=== PATIENT | female | born 1955 | race Caucasian/White ===

== ENCOUNTER 2018-07-11 15:56 | Emergency (ER) | payer MEDICAID ==
[2018-07-11] MEDS ORDERED: Lactated Ringers 1,000 ML IV ONE (16:30)
[2018-07-11] MEDS ORDERED: Ondansetron 4 MG/2 ML SDV IVPUSH ONE (16:30)
--- NOTE | 2018-07-11 16:34 | EDM.PDOC ---
<Francesco Fritz - Last Filed: 07/11/18 17:49> ED HPI GENERAL MEDICAL PROBLEM - General Chief Complaint: 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 Problem Stated Complaint: NAUSEA,WEAK,DIZZY Time Seen by Provider: 07/11/18 16:15 Source of Information: Reports: Patient, Old Records History Limitations: Reports: No Limitations - History of Present Illness INITIAL COMMENTS - FREE TEXT/NARRATIVE: 63 yo female here with nausea, diarrhea (controlled with Imodium) and a cough. Was seen in the clinic recently and had a normal CBC and a negative influenza screen. Has Zofran which she has been taking inconsistently without good relief of her nausea. Is dizzy with standing. No SOB. Is weak. Onset: Gradual Duration: Day(s):, Getting Worse Location: Reports: Generalized Quality: Reports: Other (no pain) Severity: Moderate Improves with: Reports: None Worsens with: Reports: Other (time) Context: Reports: Other (See HPI) Associated Symptoms: Reports: Cough, Fever/Chills, Malaise, Nausea/Vomiting (no vomiting). 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) Generalized Pain Score (Numeric/FACES): 8 - Related Data Allergies Allergy/AdvReac Type Severity Reaction Status Date / Time No Known Allergies Allergy Verified 07/11/18 16:10 Home Meds: Home Meds Albuterol [Proventil Neb Soln] 2.5 mg IH Q4HR PRN 07/11/18 [History] Budesonide/Formoterol [Symbicort 80-4.5 MCG] 2 gm IH BID 07/11/18 [History] Past Medical History HEENT History: Reports: Impaired Vision Respiratory History: Reports: Asthma 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 History: Reports: None 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: Musculoskeletal History: Reports: Fibromyalgia - Infectious Disease History Infectious Disease History: Reports: Chicken Pox, Measles, Mumps - Past Surgical History Head Surgeries/Procedures: Reports: None HEENT Surgical History: Reports: None Respiratory Surgical History: Reports: None GI Surgical History: Reports: Appendectomy Musculoskeletal Surgical History: Reports: None Dermatological Surgical History: Reports: None Social & Family History - Tobacco Use Smoking Status *Q: Current Every Day Smoker Years of Tobacco use: 40 Packs/Tins Daily: 0.5 Used Tobacco, but Quit: No - Caffeine Use Caffeine Use: Reports: Tea - Recreational Drug Use Recreational Drug Use: No ED ROS GENERAL - Review of Systems Review Of Systems: See Below Constitutional: Reports: Fever, Chills, Malaise, Decreased Appetite HEENT: Reports: No Symptoms Respiratory: Reports: Cough. Denies: Shortness of Breath, Sputum, Hemoptysis Cardiovascular: Reports: Lightheadedness Endocrine: Reports: No Symptoms GI/Abdominal: Reports: Anorexia, Diarrhea, Nausea. Denies: Abdominal Pain, Black Stool, Bloody Stool, Constipation, Distension, Flatus, Hematemesis, Hematochezia, Melena, Vomiting : Reports: No Symptoms Musculoskeletal: Reports: No Symptoms Skin: Reports: No Symptoms Neurological: Reports: No Symptoms Psychiatric: Reports: No Symptoms ED EXAM, GI/ABD - Physical Exam Exam: See Below Exam Limited By: No Limitations General Appearance: Alert, WD/WN, No Apparent Distress, Other (Seems to be having a hard time with clear thought. Had to re-ask or re-phrase questions several times for her to answer the question that was asked. ) Eyes: Bilateral: Normal Appearance Ears: Normal External Exam, Normal Canal, Hearing Grossly Normal, Normal TMs Nose: Normal Inspection, No Blood Throat/Mouth: Normal Inspection, Normal Lips, Normal Oropharynx, Normal Voice, No Airway Compromise Head: Atraumatic, Normocephalic Neck: Normal Inspection, Supple, Non-Tender Respiratory/Chest: No Respiratory Distress, Lungs Clear, Normal Breath Sounds, No Accessory Muscle Use Cardiovascular: Regular Rate, Rhythm, No Edema GI/Abdominal Exam: Normal Bowel Sounds, Soft, Non-Tender, No Distention Back Exam: Normal Inspection. No: CVA Tenderness (R), CVA Tenderness (L) Extremities: Normal Inspection, Normal Range of Motion, Non-Tender, No Pedal Edema Neurological: Alert, Oriented, CN II-XII Intact, Normal Cognition, No Motor/ Sensory Deficits Psychiatric: Normal Affect, Normal Mood Skin Exam: Warm, Dry, Intact, Normal Color, No Rash Course - Vital Signs Last Recorded V/S: Last Vital Signs Temp 37.1 C 07/11/18 16:14 Pulse 67 07/11/18 16:14 Resp 16 07/11/18 16:14 BP 103/63 07/11/18 16:14 Pulse Ox 97 07/11/18 16:14 - Orders/Labs/Meds Labs: Laboratory Tests 07/11/18 07/11/18 Range/Units 16:40 16:40 WBC 5.7 (4.5-11.0) K/uL RBC 4.71 (3.30-5.50) M/uL Hgb 15.4 H (12.0-15.0) g/dL Hct 47.3 (36.0-48.0) % MCV 100 H (80-98) fL MCH 33 H (27-31) pg MCHC 33 (32-36) % Plt Count 139 L (150-400) K/uL Sodium 123 L (140-148) mmol/L Potassium 4.4 (3.6-5.2) mmol/L Chloride 86 L (100-108) mmol/L Carbon Dioxide 30 (21-32) mmol/L Anion Gap 11.4 (5.0-14.0) mmol/L BUN 14 (7-18) mg/dL Creatinine 0.6 (0.6-1.0) mg/dL Est Cr Clr Drug Dosing 66.96 mL/min Estimated GFR (MDRD) > 60 (>60) Glucose 115 H (74-106) mg/dL Calcium 7.8 L (8.5-10.1) mg/dL Meds: Medications Discontinued Medications Generic Name Dose Route Start Last Admin Trade Name Freq PRN Reason Stop Dose Admin Lactated Ringer's 1,000 mls @ 1,000 mls/hr 07/11/18 16:30 07/11/18 16:41 Ringers, Lactated IV 07/11/18 17:29 1,000 mls/hr BOLUS ONE Administration Sodium Chloride 1,000 mls @ 1,000 mls/hr 07/11/18 17:40 07/11/18 17:42 Normal Saline IV 07/11/18 18:39 1,000 mls/hr .BOLUS ONE Administration Ondansetron HCl 4 mg 07/11/18 16:30 07/11/18 16:44 Zofran IVPUSH 07/11/18 16:31 4 mg ONETIME ONE Administration Departure - Departure Disposition: Home, Self-Care 01 Condition: Fair Clinical Impression: Hyponatremia, Tobacco abuse, Viral illness - Discharge Information Instructions: Hyponatremia, [id number] Referrals: PCP,None [Primary Care Provider] - Forms: ED Department Discharge Additional Instructions: Please push oral intake with some other liquids other than water and solids Return to the ER for worsening symptoms, follow up with your primary doctor as needed <Danny Pringle - Last Filed: 07/11/18 18:46> Course - Re-Assessments/Exams Free Text/Narrative Re-Assessment/Exam: Received patient in sign out from Dr Fritz pending trial of ambulation and re- assessment She is ambulating in the ED with steady gait. Minimal dizziness. Tolerating PO Safe for discharge Has anti-tussive and anti-emetic prescribed for home. 07/11/18 18:45 Departure - Departure Time of Disposition: 18:42 - Discharge Information *PRESCRIPTION DRUG MONITORING PROGRAM REVIEWED*: No *COPY OF PRESCRIPTION DRUG MONITORING REPORT IN PATIENT [place]: No
[2018-07-11] MEDS ORDERED: Sodium Chloride 0.9% 1,000 ML IV ONE (17:40)
== END 2018-07-11 18:50 | disposition home or self-care (01) ==
LOC: JP.ED 15:56
DX: B34.9 Viral infection, unspecified (principal); F17.210 Nicotine dependence, cigarettes, uncomplicated; E87.1 Hypo-osmolality and hyponatremia; Z79.899 Other long term (current) drug therapy
CPT/HCPCS: 36415; 80048; 85027; 96361; 96374; 99283; J2405; J7030; J7120

== ENCOUNTER 2019-06-17 18:47 | Inpatient (IN) | payer MEDICAID ==
[2019-06-17] MEDS ORDERED: Albuterol/Ipratropium 3.0-0.5 MG/3 ML Neb Soln NEB ONE (20:16)
[2019-06-17] MEDS ORDERED: methylPREDNISolone Sodium Succinate 125 MG/2 ML SDV IVPUSH ONE (20:17)
--- NOTE | 2019-06-17 20:21 | EDM.PDOC ---
ED HPI GENERAL MEDICAL PROBLEM - General Chief Complaint: Respiratory Problem Stated Complaint: SOB Time Seen by Provider: 06/17/19 20:00 Source of Information: Reports: Patient, Family History Limitations: Reports: No Limitations - History of Present Illness INITIAL COMMENTS - FREE TEXT/NARRATIVE: 64-year-old female with COPD, has had a 5-day illness with increased cough, low intermittent fevers and increased shortness of breath. She went into the clinic today and a work-up revealed hypoxemia. They were going to try to discharge her and treat her outpatient and arrange home O2, however this was unobtainable at this time. She continued to become hypoxic in the low to mid 80s without oxygen supplementation, so was sent over to the emergency room to be "admitted to the hospital". A chest x-ray was done at the clinic which shows hyperinflation but no infiltrate. She is afebrile at this time. She does continue to smoke. Her cough is nonproductive. Onset: Gradual Duration: Day(s): Associated Symptoms: Reports: Chest Pain (With coughing), Cough, Fever/Chills, Malaise, Shortness of Breath - Related Data Allergies Allergy/AdvReac Type Severity Reaction Status Date / Time No Known Allergies Allergy Verified 07/11/18 16:10 Home Meds: Home Meds Budesonide/Formoterol [Symbicort 80-4.5 MCG] 2 gm IH BID 07/11/18 [History] Albuterol [Ventolin 2 MG/5 ML] 3 ml INH Q3H PRN 06/17/19 [History] Albuterol [Ventolin HFA] 1 - 2 puff INH ASDIRECTED 06/17/19 [History] Calcium Carbonate/Vitamin D3 [Calcium 600-Vit D3 2,500 Sftgl] 2.5 tab PO DAILY 06/17/19 [History] Levofloxacin 750 mg PO DAILY 06/17/19 [History] Umeclidinium Brm/Vilanterol Tr [Anoro Ellipta 62.5-25 MCG] 1 puff INH DAILY [History] predniSONE [Prednisone] 1 - 6 tab PO ASDIRECTED 06/17/19 [History] Past Medical History HEENT History: Reports: Impaired Vision Respiratory History: Reports: Asthma, COPD 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 History: Reports: 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: Musculoskeletal History: Reports: Fibromyalgia - Infectious Disease History Infectious Disease History: Reports: Chicken Pox, Measles, Mumps - Past Surgical History Head Surgeries/Procedures: Reports: None HEENT Surgical History: Reports: None Respiratory Surgical History: Reports: None GI Surgical History: Reports: Appendectomy Musculoskeletal Surgical History: Reports: None Dermatological Surgical History: Reports: None Social & Family History - Tobacco Use Smoking Status *Q: Heavy Tobacco Smoker Years of Tobacco use: 45 Packs/Tins Daily: 0.5 - Caffeine Use Caffeine Use: Reports: None - Recreational Drug Use Recreational Drug Use: No ED ROS GENERAL - Review of Systems Review Of Systems: See Below Constitutional: Reports: Fever, Chills, Malaise HEENT: Denies: Throat Pain Respiratory: Reports: Shortness of Breath, Cough. Denies: Wheezing, Sputum Cardiovascular: Reports: Chest Pain (Chest is getting sore from coughing) GI/Abdominal: Reports: Abdominal Pain (Upper abdominal muscles are sore from coughing) Skin: Reports: No Symptoms Neurological: Denies: Dizziness, Headache Psychiatric: Reports: No Symptoms ED EXAM, GENERAL - Physical Exam Exam: See Below Exam Limited By: No Limitations General Appearance: Alert, No Apparent Distress (Patient looks dyspneic with some mild accessory muscle usage but not distressed with the supplemental O2) Head: Atraumatic Respiratory/Chest: No Respiratory Distress, Lungs Clear, Decreased Breath Sounds (Diffuse decreased breath sounds) Cardiovascular: Regular Rate, Rhythm, Tachycardia GI/Abdominal: Normal Bowel Sounds, Tender (Soreness to palpation of the upper abdominal muscles) Extremities: No Pedal Edema Neurological: Alert, Oriented Psychiatric: Normal Affect, Normal Mood Skin Exam: Warm, Dry Course - Vital Signs Last Recorded V/S: Last Vital Signs Temp 98.0 F 06/17/19 22:23 Pulse 111 H 06/17/19 22:23 Resp 23 H 06/17/19 22:23 BP 105/79 06/17/19 22:23 Pulse Ox 92 L 06/17/19 22:23 - Orders/Labs/Meds Orders: Medication Orders Acetaminophen (Tylenol) 650 mg PO Q4H PRN PRN Reason: Pain (Mild 1-3)/fever Albuterol/Ipratropium (Duoneb 3.0-0.5 Mg/3 Ml) 3 ml NEB Q4H [facility] Last Admin: 06/17/19 22:07 Dose: 3 ml Diphenhydramine HCl (Benadryl) 25 mg PO ONETIME ONE Stop: 06/17/19 23:44 Heparin Sodium (Porcine) (Heparin Sodium) 5,000 units SUBCUT Q8H [facility] Last Admin: 06/17/19 22:21 Dose: 5,000 units Levofloxacin/Dextrose 750 mg/ (Premix) 150 mls @ 100 mls/hr IV Q24H [facility] Last Admin: 06/17/19 22:42 Dose: 100 mls/hr Ondansetron HCl (Zofran Odt) 4 mg PO Q6H PRN PRN Reason: Nausea able to take PO Senna/Docusate Sodium (Senna Plus) 1 tab PO BID PRN PRN Reason: Constipation Labs: Laboratory Tests 06/17/19 06/17/19 Range/Units 20:31 20:31 WBC 5.2 (4.5-11.0) K/uL RBC 4.50 (3.30-5.50) M/uL Hgb 14.1 (12.0-15.0) g/dL Hct 44.9 (36.0-48.0) % MCV 100 H (80-98) fL MCH 31 (27-31) pg MCHC 31 L (32-36) % Plt Count 174 (150-400) K/uL Neut % (Auto) 59 (36-66) % Lymph % (Auto) 25 (24-44) % [place] % (Auto) 15 H (2-6) % Eos % (Auto) 0 L (2-4) % Baso % (Auto) 2 H (0-1) % Sodium 137 L (140-148) mmol/L Potassium 4.6 (3.6-5.2) mmol/L Chloride 98 L (100-108) mmol/L Carbon Dioxide 29 (21-32) mmol/L Anion Gap 14.6 H (5.0-14.0) mmol/L BUN 8 (7-18) mg/dL Creatinine 0.5 L (0.6-1.0) mg/dL Est Cr Clr Drug Dosing 83.84 mL/min Estimated GFR (MDRD) > 60 (>60) Glucose 97 (74-106) mg/dL Calcium 8.3 L (8.5-10.1) mg/dL Total Bilirubin 0.2 (0.2-1.0) mg/dL AST 40 H (15-37) U/L ALT 49 (12-78) U/L Alkaline Phosphatase 55 (46-116) U/L Total Protein 6.7 (6.4-8.2) g/dL Albumin 3.1 L (3.4-5.0) g/dL Globulin 3.6 H (2.3-3.5) g/dL Albumin/Globulin Ratio 0.9 L (1.2-2.2) Meds: Medications Generic Name Dose Route Start Last Admin Trade Name Yannick PRN Reason Stop Dose Admin Acetaminophen 650 mg 06/17/19 21:28 Tylenol PO Q4H PRN Pain (Mild 1-3)/fever Albuterol/Ipratropium 3 ml 06/17/19 21:45 06/17/19 22:07 Duoneb 3.0-0.5 Mg/3 Ml NEB 3 ml Q4H RONA Administration Diphenhydramine HCl 25 mg 06/17/19 23:43 Benadryl PO 06/17/19 23:44 ONETIME ONE Heparin Sodium (Porcine) 5,000 units 06/17/19 21:30 06/17/19 22:21 Heparin Sodium SUBCUT 5,000 units Q8H RONA Administration Levofloxacin/Dextrose 750 mg/ 150 mls @ 100 mls/hr 06/17/19 22:00 06/17/19 22 :42 Premix IV 100 mls/hr Q24H RONA Administration Ondansetron HCl 4 mg 06/17/19 21:28 Zofran Odt PO Q6H PRN Nausea able to take PO Senna/Docusate Sodium 1 tab 06/17/19 21:28 Senna Plus PO BID PRN Constipation Discontinued Medications Generic Name Dose Route Start Last Admin Trade Name Yannick PRN Reason Stop Dose Admin Albuterol/Ipratropium 3 ml 06/17/19 20:16 06/17/19 20:26 Duoneb 3.0-0.5 Mg/3 Ml NEB 06/17/19 20:17 3 ml ONETIME ONE Administration Methylprednisolone Sodium Succinate 125 mg 06/17/19 20:17 06/17/19 20:26 Solu-Medrol IVPUSH 06/17/19 20:18 125 mg ONETIME ONE Administration - Re-Assessments/Exams Free Text/Narrative Re-Assessment/Exam: 06/17/19 20:59 An IV was started for access, patient was given 125 mg of IV Solu-Medrol and also a DuoNeb. The DuoNeb did provide some subjective improvement but objectively was similar. CBC and CMP were obtained and Dr. Triana was contacted for admission for COPD exacerbation patient. Influenza A and B were also obtained. 06/17/19 21:02 CBC is normal, influenza a and B antigens were negative. Departure - Departure Time of Disposition: 21:54 Disposition: Admitted As Inpatient 66 Clinical Impression: Acute exacerbation of chronic obstructive pulmonary disease (COPD) - Discharge Information Sepsis Event Note - Evaluation Sepsis Screening Result: No Definite Risk - Focused Exam Vital Signs: Vital Signs Temp Pulse Resp BP Pulse Ox 06/17/19 19:51 97.8 F 114 H 16 124/75 91 L 06/17/19 19:34 97.8 F 114 H 16 124/75 91 L Date Exam was Performed: 06/17/19 Time Exam was Performed: 23:46
--- NOTE | 2019-06-17 21:04 | PCM.HP.2 ---
H&P History of Present Illness - General Date of Service: 06/17/19 Source of Information: Patient History Limitations: Reports: No Limitations - History of Present Illness Initial Comments - Free Text/Narative: 64-year-old female with medical history of centrilobular emphysema, chronic fatigue syndrome, nicotine dependence, fibromyalgia, questionable asthma, migraine syndrome, lower extremity varicose veins came to the ED with a concerns of cough associated with the sputum production with low oxygen saturation. Patient initially went to urgent care at that time patient saturations was around 80. At that complaint patient transferred to ER. Patient denies any chest pain, exertional chest pain, headaches, dizziness, lightheadedness, disturbance in bowel and bladder habits. Patient complaining of intermittent fever associated with cough since last 1 week which is gradually progressing. Patient did not receive flu vaccination this season. Denies any lower extremity swelling, orthopnea, PND and palpitations. Patient smokes half a pack a day wants to quit smoking. Patient is compliant with Symbicort and Incruse. Patient complaining of shortness of breath denies any loss of consciousness. In the ED patient x-ray did not show any concerns of pneumonia, WBCs within normal limit, CRP is elevated and saturations are 91% with 2 L of oxygen. Patient received 1 dose of 125 mg prednisolone IV. Patient is a full code. Other review of systems are not significant. - Related Data Allergies/Adverse Reactions: Allergies Allergy/AdvReac Type Severity Reaction Status Date / Time No Known Allergies Allergy Verified 07/11/18 16:10 Home Medications: Home Meds Albuterol [Ventolin 2 MG/5 ML] 3 ml INH Q3H PRN 06/17/19 [History] Albuterol [Ventolin HFA] 1 - 2 puff INH ASDIRECTED 06/17/19 [History] Calcium Carbonate/Vitamin D3 [Calcium 600-Vit D3 2,500 Sftgl] 2.5 tab PO DAILY 06/17/19 [History] Levofloxacin 750 mg PO DAILY 06/17/19 [History] predniSONE [Prednisone] 1 - 6 tab PO ASDIRECTED 06/17/19 [History] Budesonide/Formoterol Fumarate [Symbicort 160-4.5 Mcg Inhaler] 2 puff INH BID [History] Non-Formulary Medication [NF Drug] 1 puff INH DAILY 06/18/19 [History] Past Medical History HEENT History: Reports: Impaired Vision Respiratory History: Reports: Asthma, COPD 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 History: Reports: 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: Musculoskeletal History: Reports: Fibromyalgia - Infectious Disease History Infectious Disease History: Reports: Chicken Pox, Measles, Mumps - Past Surgical History Head Surgeries/Procedures: Reports: None HEENT Surgical History: Reports: None Respiratory Surgical History: Reports: None GI Surgical History: Reports: Appendectomy Musculoskeletal Surgical History: Reports: None Dermatological Surgical History: Reports: None Social & Family History - Family History Family Medical History: Noncontributory - Tobacco Use Smoking Status *Q: Heavy Tobacco Smoker Years of Tobacco use: 45 Packs/Tins Daily: 0.5 - Caffeine Use Caffeine Use: Reports: None - Recreational Drug Use Recreational Drug Use: No H&P Review of Systems - Review of Systems: Review Of Systems: See Below General: Reports: Fever, Chills, Malaise, Weakness, Fatigue, Decreased Appetite. Denies: Night Sweats, Diaphoresis, Weight Loss, Weight Gain Pulmonary: Reports: Shortness of Breath, Wheezing, Cough, Sputum. Denies: Pleuritic Chest Pain, Hemoptysis Cardiovascular: Reports: Dyspnea on Exertion. Denies: Chest Pain, Palpitations , Orthopnea, PND, Edema, Lightheadedness, Syncope, Claudication, Blood Pressure Problem 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: Denies: Abdominal Pain, Constipation, Diarrhea, Nausea, Vomiting Genitourinary: Denies: Dysuria, Frequency Musculoskeletal: Denies: Neck Pain, Shoulder Pain Psychiatric: Denies: Confusion, Depression Neurological: Denies: Confusion, Dizziness Hematologic/Lymphatic: Denies: Anemia, Easy Bleeding Immunologic: Denies: Anaphylaxis Exam - Exam Exam: See Below - Vital Signs Vital Signs: Last Vital Signs Temp 36.6 C 06/17/19 19:51 Pulse 114 H 06/17/19 19:51 Resp 16 06/17/19 19:51 BP 124/75 06/17/19 19:51 Pulse Ox 91 L 06/17/19 19:51 Weight: 46.72 kg - Exam Quality Assessment: Supplemental Oxygen General: Alert, Oriented Neck: Supple, Trachea Midline Lungs: Decreased Breath Sounds Cardiovascular: Regular Rate, Regular Rhythm GI/Abdominal Exam: Normal Bowel Sounds, Soft, Non-Tender Back Exam: Normal Inspection, Full Range of Motion Extremities: Normal Inspection, Normal Range of Motion, Non-Tender, No Pedal Edema, Normal Capillary Refill Skin: Warm, Dry, Intact Neuro Extensive - Mental Status: Alert, Oriented x3, Normal Mood/Affect - Patient Data Lab Results Last 24 hrs: Laboratory Results - last 24 hr 06/17/19 06/17/19 Range/Units 20:31 20:31 WBC 5.2 (4.5-11.0) K/uL RBC 4.50 (3.30-5.50) M/uL Hgb 14.1 (12.0-15.0) g/dL Hct 44.9 (36.0-48.0) % MCV 100 H (80-98) fL MCH 31 (27-31) pg MCHC 31 L (32-36) % Plt Count 174 (150-400) K/uL Neut % (Auto) 59 (36-66) % Lymph % (Auto) 25 (24-44) % [place] % (Auto) 15 H (2-6) % Eos % (Auto) 0 L (2-4) % Baso % (Auto) 2 H (0-1) % Sodium 137 L (140-148) mmol/L Potassium 4.6 (3.6-5.2) mmol/L Chloride 98 L (100-108) mmol/L Carbon Dioxide 29 (21-32) mmol/L Anion Gap 14.6 H (5.0-14.0) mmol/L BUN 8 (7-18) mg/dL Creatinine 0.5 L (0.6-1.0) mg/dL Est Cr Clr Drug Dosing 83.84 mL/min Estimated GFR (MDRD) > 60 (>60) Glucose 97 (74-106) mg/dL Calcium 8.3 L (8.5-10.1) mg/dL Total Bilirubin 0.2 (0.2-1.0) mg/dL AST 40 H (15-37) U/L ALT 49 (12-78) U/L Alkaline Phosphatase 55 (46-116) U/L Total Protein 6.7 (6.4-8.2) g/dL Albumin 3.1 L (3.4-5.0) g/dL Globulin 3.6 H (2.3-3.5) g/dL Albumin/Globulin Ratio 0.9 L (1.2-2.2) Result Diagrams: 06/18/19 04:45 06/18/19 04:45 Hector Results Last 24 hrs: Microbiology 06/17/19 20:35 Influenza Type A Antigen Screen - Final Nasal, Unspecified NEGATIVE INFLUENZA A VIRUS AG REFERENCE RANGE: NEGATIVE Influenza Type B Antigen Screen - Final NEGATIVE INFLUENZA B VIRUS AG REFERENCE RANGE: NEGATIVE Sepsis Event Note - Evaluation Sepsis Screening Result: No Definite Risk - Focused Exam Vital Signs: Vital Signs Temp Pulse Resp BP Pulse Ox 06/17/19 19:51 36.6 C 114 H 16 124/75 91 L 06/17/19 19:34 36.6 C 114 H 16 124/75 91 L Date Exam was Performed: 06/20/19 Time Exam was Performed: 06:02 - Problem List (1) Fibromyalgia SNOMED Code(s): 177764820 ICD Code: M79.7 - FIBROMYALGIA Status: Acute Current Visit: Yes (2) Migraine SNOMED Code(s): 19045590 ICD Code: G43.909 - MIGRAINE, UNSP, NOT INTRACTABLE, WITHOUT STATUS MIGRAINOSUS Status: Acute Current Visit: Yes (3) Acute exacerbation of chronic obstructive pulmonary disease (COPD) SNOMED Code(s): 114770172 ICD Code: J44.1 - CHRONIC OBSTRUCTIVE PULMONARY DISEASE W (ACUTE) EXACERBATION Status: Acute Current Visit: Yes (4) Centrilobular emphysema SNOMED Code(s): 91369854 ICD Code: J43.2 - CENTRILOBULAR EMPHYSEMA Status: Chronic Current Visit: No (5) Chronic fatigue syndrome SNOMED Code(s): 66521061 ICD Code: R53.82 - CHRONIC FATIGUE, UNSPECIFIED Status: Chronic Current Visit: No (6) Moderate persistent asthma SNOMED Code(s): 803360114 ICD Code: J45.40 - MODERATE PERSISTENT ASTHMA, UNCOMPLICATED Status: Chronic Current Visit: No (7) Tobacco abuse SNOMED Code(s): 334656516 ICD Code: Z72.0 - TOBACCO USE Status: Chronic Current Visit: No Problem List Initiated/Reviewed/Updated: Yes Orders Last 24hrs: Active Orders 24 hr Category Date Time Status RT Aerosol Therapy [RC] ASDIRECTED Care 06/17/19 20:16 Active Assessment/Plan Comment:: 64-year-old female with medical history of COPD, emphysema, questionable asthma , chronic fatigue syndrome, migraine headaches, fibromyalgia, nicotine dependence came to the ED with a concerns of hypoxia, shortness of breath and admitted into the hospital with COPD exasperation Patient saturations are around 80 with room air, 91% with 2 L of oxygen We will continue oxygen supplementation with goal of saturations 92 CRP is elevated, x-ray did not show any pneumonia We will add levofloxacin for empiric antibiotics We will repeat CBC CMP tomorrow DuoNeb scheduled dose 4 times daily We will continue 125 mg IV prednisone once daily Continue Symbicort, Incruse Will consult pulmonology rehab for smoking cessation counseling DVT prophylaxis heparin subcu 8 hourly CODE STATUS full code IV fluids not indicated Wagner catheter not indicated Diet regular diet Inpatient status
[2019-06-17] MEDS ORDERED: Acetaminophen 325 MG Tab PO PRN (21:28)
[2019-06-17] MEDS ORDERED: Ondansetron 4 MG Tab.DIS PO PRN (21:28)
[2019-06-17] MEDS ORDERED: Levofloxacin/Dextrose 5%-Water 750 MG in Premix Bag 1 BAG IV SCH (22:00)
[2019-06-17] MEDS: Albuterol/Ipratropium 3.0-0.5 MG/3 ML Neb Soln NEB SCH (22:07)
[2019-06-17] MEDS: Heparin Sodium 5,000 Units/ML Vial SUBCUT SCH (22:21)
[2019-06-17] MEDS ORDERED: diphenhydrAMINE 25 MG Cap PO ONE (23:43)
[2019-06-18] MEDS: Albuterol/Ipratropium 3.0-0.5 MG/3 ML Neb Soln NEB SCH ×5 (01:00→20:20)
[2019-06-18] MEDS ORDERED: Levofloxacin/Dextrose 5%-Water 750 MG in Premix Bag 1 BAG IV SCH (02:00)
[2019-06-18] MEDS: Heparin Sodium 5,000 Units/ML Vial SUBCUT SCH (06:13)
[2019-06-18] MEDS ORDERED: FORMOTEROL IH SCH (09:00)
[2019-06-18] MEDS ORDERED: Non-Formulary Medication 1 Each (Umeclidinium Brm/Vilanterol Tr [Anoro Ellipta 62.5-25 Mcg INH SCH (09:00)
[2019-06-18] MEDS ORDERED: BUDESONIDE IH SCH (09:00)
[2019-06-18] MEDS ORDERED: Benzonatate 100 MG Cap PO PRN (09:16)
--- NOTE | 2019-06-18 09:19 | PCM.PN ---
- General Info Date of Service: 06/18/19 Subjective Update: There were no acute events overnight following admission. She is coughing a fair amount but not producing sputum. Still short of breath with any activity. She has not had any fevers. No complaints of chest pain. Appetite has been decent. She has been bothered by a tremor in her foot which she calls a restless leg. Functional Status: Reports: Pain Controlled, Tolerating Diet - Review of Systems General: Denies: Fever Pulmonary: Reports: Shortness of Breath, Cough - Patient Data Vitals - Most Recent: Last Vital Signs Temp 36.6 C 06/18/19 08:00 Pulse 102 H 06/18/19 08:00 Resp 18 06/18/19 08:00 BP 110/65 06/18/19 08:00 Pulse Ox 94 L 06/18/19 08:00 Weight - Most Recent: 46.72 kg I&O - Last 24 Hours: Intake & Output 06/17/19 06/18/19 06/18/19 22:59 06:59 14:59 Intake Total 150 Balance 150 Lab Results Last 24 Hours: Laboratory Results - last 24 hr 06/17/19 06/17/19 06/17/19 Range/Units 20:31 20:31 21:38 WBC 5.2 (4.5-11.0) K/uL RBC 4.50 (3.30-5.50) M/uL Hgb 14.1 (12.0-15.0) g/dL Hct 44.9 (36.0-48.0) % MCV 100 H (80-98) fL MCH 31 (27-31) pg MCHC 31 L (32-36) % Plt Count 174 (150-400) K/uL Neut % (Auto) 59 (36-66) % Lymph % (Auto) 25 (24-44) % Posey % (Auto) 15 H (2-6) % Eos % (Auto) 0 L (2-4) % Baso % (Auto) 2 H (0-1) % Sodium 137 L (140-148) mmol/L Potassium 4.6 (3.6-5.2) mmol/L Chloride 98 L (100-108) mmol/L Carbon Dioxide 29 (21-32) mmol/L Anion Gap 14.6 H (5.0-14.0) mmol/L BUN 8 (7-18) mg/dL Creatinine 0.5 L (0.6-1.0) mg/dL Est Cr Clr Drug Dosing 83.84 mL/min Estimated GFR (MDRD) > 60 (>60) Glucose 97 (74-106) mg/dL Calcium 8.3 L (8.5-10.1) mg/dL Total Bilirubin 0.2 (0.2-1.0) mg/dL AST 40 H (15-37) U/L ALT 49 (12-78) U/L Alkaline Phosphatase 55 (46-116) U/L C-Reactive Protein 11.33 H (0.0-0.3) mg/dL Total Protein 6.7 (6.4-8.2) g/dL Albumin 3.1 L (3.4-5.0) g/dL Globulin 3.6 H (2.3-3.5) g/dL Albumin/Globulin Ratio 0.9 L (1.2-2.2) 06/18/19 06/18/19 Range/Units 04:45 04:45 WBC 2.6 L (4.5-11.0) K/uL RBC 4.31 (3.30-5.50) M/uL Hgb 13.5 (12.0-15.0) g/dL Hct 43.2 (36.0-48.0) % MCV 100 H (80-98) fL MCH 31 (27-31) pg MCHC 31 L (32-36) % Plt Count 171 (150-400) K/uL Neut % (Auto) 77 H (36-66) % Lymph % (Auto) 18 L (24-44) % Posey % (Auto) 2 (2-6) % Eos % (Auto) 0 L (2-4) % Baso % (Auto) 2 H (0-1) % Sodium 136 L (140-148) mmol/L Potassium 4.5 (3.6-5.2) mmol/L Chloride 98 L (100-108) mmol/L Carbon Dioxide 32 (21-32) mmol/L Anion Gap 10.5 (5.0-14.0) mmol/L BUN 9 (7-18) mg/dL Creatinine 0.7 (0.6-1.0) mg/dL Est Cr Clr Drug Dosing 59.88 mL/min Estimated GFR (MDRD) > 60 (>60) Glucose 139 H (74-106) mg/dL Calcium 8.5 (8.5-10.1) mg/dL Total Bilirubin (0.2-1.0) mg/dL AST (15-37) U/L ALT (12-78) U/L Alkaline Phosphatase (46-116) U/L C-Reactive Protein (0.0-0.3) mg/dL Total Protein (6.4-8.2) g/dL Albumin (3.4-5.0) g/dL Globulin (2.3-3.5) g/dL Albumin/Globulin Ratio (1.2-2.2) Hector Results Last 24 Hours: Microbiology 06/17/19 20:35 Influenza Type A Antigen Screen - Final Nasal, Unspecified NEGATIVE INFLUENZA A VIRUS AG REFERENCE RANGE: NEGATIVE Influenza Type B Antigen Screen - Final NEGATIVE INFLUENZA B VIRUS AG REFERENCE RANGE: NEGATIVE Med Orders - Current: Current Medications Acetaminophen (Tylenol) 650 mg PO Q4H PRN PRN Reason: Pain (Mild 1-3)/fever Calcium Carbonate (Caltrate 600+D 1500 Mg-400 Units) 2 tab PO DAILY [facility] Non-Formulary Medication (Budesonide/Formoterol [Symbicort 80-4.5 Mcg]) 2 gm IH BID [facility] Non-Formulary Medication (Umeclidinium Brm/Vilanterol Tr [Anoro Ellipta 62.5-25 Mcg]) 1 puff INH DAILY [facility] Ondansetron HCl (Zofran Odt) 4 mg PO Q6H PRN PRN Reason: Nausea able to take PO Senna/Docusate Sodium (Senna Plus) 1 tab PO BID PRN PRN Reason: Constipation Discontinued Medications Albuterol/Ipratropium (Duoneb 3.0-0.5 Mg/3 Ml) 3 ml NEB ONETIME ONE Stop: 06/17/19 20:17 Last Admin: 06/17/19 20:26 Dose: 3 ml Albuterol/Ipratropium (Duoneb 3.0-0.5 Mg/3 Ml) 3 ml NEB Q4H [facility] Last Admin: 06/18/19 06:11 Dose: 3 ml Albuterol/Ipratropium (Duoneb 3.0-0.5 Mg/3 Ml) 3 ml NEB Q4H [facility] Diphenhydramine HCl (Benadryl) 25 mg PO ONETIME ONE Stop: 06/17/19 23:44 Last Admin: 06/18/19 00:09 Dose: 25 mg Heparin Sodium (Porcine) (Heparin Sodium) 5,000 units SUBCUT Q8H [facility] Last Admin: 06/18/19 06:13 Dose: 5,000 units Levofloxacin/Dextrose 750 mg/ (Premix) 150 mls @ 100 mls/hr IV Q24H [facility] Last Admin: 06/17/19 22:42 Dose: 100 mls/hr Levofloxacin/Dextrose 250 mg/ (Premix) 50 mls @ 50 mls/hr IV Q24H [facility] Methylprednisolone Sodium Succinate (Solu-Medrol) 125 mg IVPUSH ONETIME ONE Stop: 06/17/19 20:18 Last Admin: 06/17/19 20:26 Dose: 125 mg - Exam Quality Assessment: Supplemental Oxygen General: Alert, Oriented, Cooperative, No Acute Distress Lungs: Normal Respiratory Effort, Decreased Breath Sounds (poor exp air movement throughout ). No: Crackles, Wheezing Cardiovascular: Regular Rate, Regular Rhythm GI/Abdominal Exam: Soft, No Distention Extremities: No Pedal Edema Psy/Mental Status: Alert, Normal Affect Sepsis Event Note - Evaluation Sepsis Screening Result: Sepsis Risk - Focused Exam Vital Signs: Vital Signs Temp Pulse Resp BP Pulse Ox 06/18/19 08:00 36.6 C 102 H 18 110/65 94 L 06/18/19 06:05 92 L 06/18/19 06:00 36.2 C 96 16 102/55 L 91 L 06/18/19 01:02 36.8 C 102 H 18 115/78 93 L 06/17/19 22:23 36.7 C 111 H 23 H 105/79 92 L 06/17/19 22:20 86 L Date Exam was Performed: 06/18/19 Time Exam was Performed: 12:34 - Problem List Review Problem List Initiated/Reviewed/Updated: Yes - My Orders Last 24 Hours: My Active Orders 06/18/19 09:16 Benzonatate [Tessalon Perles] 100 mg PO TID PRN 06/18/19 09:17 LORazepam [Ativan] 0.5 mg PO Q4H PRN 06/18/19 09:18 Antiembolic Devices [RC] .Routine RT Aerosol Therapy [RC] ASDIRECTED Albuterol [Proventil Neb Soln] 2.5 mg NEB Q4H PRN SCD [Sequential Compression Device] [OM.PC] Routine 06/18/19 09:20 predniSONE 40 mg PO WITHBREAKFAST 06/18/19 09:30 guaiFENesin [Mucinex] 600 mg PO TID 06/18/19 10:00 Albuterol/Ipratropium [DuoNeb 3.0-0.5 MG/3 ML] 3 ml NEB QID 06/18/19 21:00 levoFLOXacin [Levaquin] 750 mg PO Q24H - Plan Plan:: ASSESSMENT AND PLAN - Acute bronchitis-complicated by an acute exacerbation of COPD with acute respiratory failure and hypoxia. Still short of breath with any activity. Still requiring supplemental oxygen. No fevers. Vital signs stable. -Empiric antibiotic coverage with levofloxacin -Prednisone 40 mg daily -Scheduled and as needed nebulizers -Supplement oxygen as needed Tobacco dependence-still smoking. -Encourage cessation Fibromyalgia-stable. Maintenance issues - - DVT prophylaxis -mechanical - GI prophylaxis -not indicated - Nutrition -regular diet Disposition -I would anticipate discharge home after the hospital stay Michel Martínez M.D.
[2019-06-18] MEDS ORDERED: SYMBICORT INH SCH ×2 (10:00→21:00)
[2019-06-18] MEDS: guaiFENesin 600 MG Tab.ER PO SCH ×3 (10:35→20:22)
[2019-06-18] MEDS: Calcium Carbonate/Vitamin D3 1500 MG-400 Units Tab PO SCH (10:36)
[2019-06-18] MEDS: predniSONE 20 MG Tab PO SCH (10:36)
[2019-06-18] MEDS: INCRUSE ELLIPTA 62.5MCG INHALER (PTOM) INH SCH (10:46)
[2019-06-18] MEDS: SYMBICORT INH SCH ×2 (10:47→20:20)
[2019-06-18] MEDS ORDERED: Albuterol/Ipratropium 3.0-0.5 MG/3 ML Neb Soln NEB SCH (11:00)
[2019-06-18] MEDS: LORazepam 0.5 MG Tab PO PRN (20:44)
[2019-06-18] MEDS ORDERED: Levofloxacin 500 MG Tab PO SCH (21:00)
[2019-06-18] MEDS ORDERED: Levofloxacin/Dextrose 5%-Water 250 MG in Premix Bag 1 BAG IV SCH (22:00)
[2019-06-19] MEDS: LORazepam 0.5 MG Tab PO PRN ×2 (00:04→21:08)
[2019-06-19] MEDS: Albuterol 0.083% 2.5 MG/3 ML Neb Soln NEB PRN ×2 (00:04→04:16)
[2019-06-19] MEDS: Albuterol/Ipratropium 3.0-0.5 MG/3 ML Neb Soln NEB SCH ×4 (07:27→21:02)
[2019-06-19] MEDS: INCRUSE ELLIPTA 62.5MCG INHALER (PTOM) INH SCH (07:27)
[2019-06-19] MEDS: SYMBICORT INH SCH ×2 (07:27→21:02)
[2019-06-19] MEDS: Calcium Carbonate/Vitamin D3 1500 MG-400 Units Tab PO SCH (08:45)
[2019-06-19] MEDS: guaiFENesin 600 MG Tab.ER PO SCH ×3 (08:45→21:02)
[2019-06-19] MEDS: predniSONE 20 MG Tab PO SCH (08:45)
--- NOTE | 2019-06-19 11:42 | PCM.PN ---
- General Info Date of Service: 06/19/19 Subjective Update: No acute events overnight. She did sleep fairly well. No fevers. Still short of breath and still wheezing though a little better today than yesterday. No issues with her restless leg overnight. Appetite improving. Still requiring supplemental oxygen at 2 L/min. Functional Status: Reports: Pain Controlled - Review of Systems General: Denies: Fever Pulmonary: Reports: Shortness of Breath, Cough - Patient Data Vitals - Most Recent: Last Vital Signs Temp 36.1 C 06/19/19 11:07 Pulse 73 06/19/19 11:07 Resp 16 06/19/19 11:07 BP 94/54 L 06/19/19 11:07 Pulse Ox 94 L 06/19/19 11:07 Weight - Most Recent: 46.72 kg I&O - Last 24 Hours: Intake & Output 06/18/19 06/19/19 06/19/19 22:59 06:59 14:59 Intake Total 240 200 Balance 240 200 Med Orders - Current: Current Medications Acetaminophen (Tylenol) 650 mg PO Q4H PRN PRN Reason: Pain (Mild 1-3)/fever Albuterol (Proventil Neb Soln) 2.5 mg NEB Q4H PRN PRN Reason: shortness of breath/wheezing Last Admin: 06/19/19 04:16 Dose: 2.5 mg Albuterol/Ipratropium (Duoneb 3.0-0.5 Mg/3 Ml) 3 ml NEB QIDRT [facility] Last Admin: 06/19/19 10:53 Dose: 3 ml Benzonatate (Tessalon Perles) 100 mg PO TID PRN PRN Reason: Cough Calcium Carbonate (Caltrate 600+D 1500 Mg-400 Units) 2 tab PO DAILY [facility] Last Admin: 06/19/19 08:45 Dose: 2 tab Guaifenesin (Mucinex) 600 mg PO TID [facility] Last Admin: 06/19/19 08:45 Dose: 600 mg Levofloxacin 250 mg/ (Levofloxacin 500 mg) 750 mg PO BEDTIME [facility] Last Admin: 06/18/19 20:22 Dose: 750 mg Lorazepam (Ativan) 0.5 mg PO Q4H PRN PRN Reason: restless legs/sleep Last Admin: 06/19/19 00:04 Dose: 0.5 mg Ondansetron HCl (Zofran Odt) 4 mg PO Q6H PRN PRN Reason: Nausea able to take PO Symbicort 160mcg/4. (5mcg Inhaler (Ptom)) 0 each INH BIDRT [facility] Last Admin: 06/19/19 07:27 Dose: 2 each Incruse Ellipta 62. (5mcg Inhaler (Ptom)) 0 each INH DAILYRT [facility] Last Admin: 06/19/19 07:27 Dose: 1 each Prednisone (Prednisone) 40 mg PO WITHBREAKFAST [facility] Last Admin: 06/19/19 08:45 Dose: 40 mg Senna/Docusate Sodium (Senna Plus) 1 tab PO BID PRN PRN Reason: Constipation Discontinued Medications Albuterol/Ipratropium (Duoneb 3.0-0.5 Mg/3 Ml) 3 ml NEB ONETIME ONE Stop: 06/17/19 20:17 Last Admin: 06/17/19 20:26 Dose: 3 ml Albuterol/Ipratropium (Duoneb 3.0-0.5 Mg/3 Ml) 3 ml NEB Q4H [facility] Last Admin: 06/18/19 06:11 Dose: 3 ml Albuterol/Ipratropium (Duoneb 3.0-0.5 Mg/3 Ml) 3 ml NEB Q4H [facility] Diphenhydramine HCl (Benadryl) 25 mg PO ONETIME ONE Stop: 06/17/19 23:44 Last Admin: 06/18/19 00:09 Dose: 25 mg Heparin Sodium (Porcine) (Heparin Sodium) 5,000 units SUBCUT Q8H [facility] Last Admin: 06/18/19 06:13 Dose: 5,000 units Levofloxacin/Dextrose 750 mg/ (Premix) 150 mls @ 100 mls/hr IV Q24H [facility] Last Admin: 06/17/19 22:42 Dose: 100 mls/hr Levofloxacin/Dextrose 250 mg/ (Premix) 50 mls @ 50 mls/hr IV Q24H [facility] Methylprednisolone Sodium Succinate (Solu-Medrol) 125 mg IVPUSH ONETIME ONE Stop: 06/17/19 20:18 Last Admin: 06/17/19 20:26 Dose: 125 mg - Exam Quality Assessment: Supplemental Oxygen General: Alert, Oriented, Cooperative, No Acute Distress Lungs: Normal Respiratory Effort, Wheezing (diffuse exp wheezing ) Cardiovascular: Regular Rate, Regular Rhythm GI/Abdominal Exam: Soft, No Distention Extremities: No Pedal Edema Psy/Mental Status: Alert, Normal Affect Sepsis Event Note - Evaluation Sepsis Screening Result: No Definite Risk - Focused Exam Vital Signs: Vital Signs Temp Pulse Resp BP Pulse Ox 06/19/19 11:07 36.1 C 73 16 94/54 L 94 L 06/19/19 10:54 83 06/19/19 08:27 36.2 C 85 16 98/60 95 06/19/19 04:14 36.6 C 86 18 91/55 L 95 06/19/19 00:02 36.3 C 78 16 112/65 96 Date Exam was Performed: 06/19/19 Time Exam was Performed: 12:45 - Problem List Review Problem List Initiated/Reviewed/Updated: Yes - My Orders Last 24 Hours: My Active Orders 06/18/19 11:00 Albuterol/Ipratropium [DuoNeb 3.0-0.5 MG/3 ML] 3 ml NEB QIDRT 06/18/19 21:00 Levofloxacin [Levaquin] 750 mg PO BEDTIME 06/19/19 15:00 predniSONE 20 mg PO ONETIME ONE - Plan Plan:: ASSESSMENT AND PLAN - Acute bronchitis-complicated by an acute exacerbation of COPD with acute respiratory failure and hypoxia. Still requiring supplemental oxygen. Shortness of breath is better but still with significant dyspnea with any exertion. -Empiric antibiotic coverage with levofloxacin -Prednisone 40 mg daily -Scheduled and as needed nebulizers -Supplement oxygen as needed, wean as able Tobacco dependence-still smoking prior to admission. -Encourage cessation Fibromyalgia-stable. Maintenance issues - - DVT prophylaxis -mechanical - GI prophylaxis -not indicated - Nutrition -regular diet Disposition -I would anticipate discharge home after the hospital stay Michel Martínez M.D.
[2019-06-19] MEDS ORDERED: predniSONE 20 MG Tab PO ONE (15:00)
[2019-06-20] MEDS: LORazepam 0.5 MG Tab PO PRN ×2 (01:07→22:11)
[2019-06-20] MEDS: Albuterol 0.083% 2.5 MG/3 ML Neb Soln NEB PRN (01:09)
[2019-06-20] MEDS: Albuterol/Ipratropium 3.0-0.5 MG/3 ML Neb Soln NEB SCH ×4 (07:33→21:13)
[2019-06-20] MEDS: INCRUSE ELLIPTA 62.5MCG INHALER (PTOM) INH SCH (08:02)
[2019-06-20] MEDS: SYMBICORT INH SCH ×2 (08:02→21:22)
[2019-06-20] MEDS: guaiFENesin 600 MG Tab.ER PO SCH ×3 (09:46→21:21)
[2019-06-20] MEDS: Calcium Carbonate/Vitamin D3 1500 MG-400 Units Tab PO SCH (09:47)
[2019-06-20] MEDS: predniSONE 20 MG Tab PO SCH (09:47)
--- NOTE | 2019-06-20 09:51 | PCM.PN ---
- General Info Date of Service: 06/20/19 Subjective Update: There were no acute events overnight. No fevers. Attempts to wean the oxygen have been unsuccessful and she continues to require a small amount of supplemental oxygen. He she believes that her shortness of breath has improved compared to yesterday. Still has a cough but it is a little bit more loose and productive today. She does not have any chest pain, nausea. Feeling better each day. Did not sleep well last night. Functional Status: Reports: Pain Controlled, Tolerating Diet - Review of Systems General: Denies: Fever Pulmonary: Reports: Shortness of Breath, Cough - Patient Data Vitals - Most Recent: Last Vital Signs Temp 36.0 C L 06/20/19 07:00 Pulse 78 06/20/19 07:52 Resp 16 06/20/19 04:00 BP 121/67 06/20/19 07:00 Pulse Ox 83 L 06/20/19 08:13 Weight - Most Recent: 46.72 kg I&O - Last 24 Hours: Intake & Output 06/19/19 06/20/19 06/20/19 22:59 06:59 14:59 Intake Total 710 Balance 710 Med Orders - Current: Current Medications Acetaminophen (Tylenol) 650 mg PO Q4H PRN PRN Reason: Pain (Mild 1-3)/fever Albuterol (Proventil Neb Soln) 2.5 mg NEB Q4H PRN PRN Reason: shortness of breath/wheezing Last Admin: 06/20/19 01:09 Dose: 2.5 mg Albuterol/Ipratropium (Duoneb 3.0-0.5 Mg/3 Ml) 3 ml NEB QIDRT [facility] Last Admin: 06/20/19 07:33 Dose: 3 ml Benzonatate (Tessalon Perles) 100 mg PO TID PRN PRN Reason: Cough Calcium Carbonate (Caltrate 600+D 1500 Mg-400 Units) 2 tab PO DAILY [facility] Last Admin: 06/20/19 09:47 Dose: 2 tab Guaifenesin (Mucinex) 600 mg PO TID [facility] Last Admin: 06/20/19 09:46 Dose: 600 mg Levofloxacin 250 mg/ (Levofloxacin 500 mg) 750 mg PO BEDTIME [facility] Last Admin: 06/19/19 21:02 Dose: 750 mg Lorazepam (Ativan) 0.5 mg PO Q4H PRN PRN Reason: restless legs/sleep Last Admin: 06/20/19 01:07 Dose: 0.5 mg Ondansetron HCl (Zofran Odt) 4 mg PO Q6H PRN PRN Reason: Nausea able to take PO Symbicort 160mcg/4. (5mcg Inhaler (Ptom)) 0 each INH BIDRT [facility] Last Admin: 06/20/19 08:02 Dose: 2 each Incruse Ellipta 62. (5mcg Inhaler (Ptom)) 0 each INH DAILYRT [facility] Last Admin: 06/20/19 08:02 Dose: 1 each Prednisone (Prednisone) 40 mg PO WITHBREAKFAST [facility] Last Admin: 06/20/19 09:47 Dose: 40 mg Senna/Docusate Sodium (Senna Plus) 1 tab PO BID PRN PRN Reason: Constipation Discontinued Medications Albuterol/Ipratropium (Duoneb 3.0-0.5 Mg/3 Ml) 3 ml NEB ONETIME ONE Stop: 06/17/19 20:17 Last Admin: 06/17/19 20:26 Dose: 3 ml Albuterol/Ipratropium (Duoneb 3.0-0.5 Mg/3 Ml) 3 ml NEB Q4H [facility] Last Admin: 06/18/19 06:11 Dose: 3 ml Albuterol/Ipratropium (Duoneb 3.0-0.5 Mg/3 Ml) 3 ml NEB Q4H [facility] Diphenhydramine HCl (Benadryl) 25 mg PO ONETIME ONE Stop: 06/17/19 23:44 Last Admin: 06/18/19 00:09 Dose: 25 mg Heparin Sodium (Porcine) (Heparin Sodium) 5,000 units SUBCUT Q8H [facility] Last Admin: 06/18/19 06:13 Dose: 5,000 units Levofloxacin/Dextrose 750 mg/ (Premix) 150 mls @ 100 mls/hr IV Q24H [facility] Last Admin: 06/17/19 22:42 Dose: 100 mls/hr Levofloxacin/Dextrose 250 mg/ (Premix) 50 mls @ 50 mls/hr IV Q24H [facility] Methylprednisolone Sodium Succinate (Solu-Medrol) 125 mg IVPUSH ONETIME ONE Stop: 06/17/19 20:18 Last Admin: 06/17/19 20:26 Dose: 125 mg Prednisone (Prednisone) 20 mg PO ONETIME ONE Stop: 06/19/19 15:01 Last Admin: 06/19/19 15:03 Dose: 20 mg - Exam Quality Assessment: Supplemental Oxygen General: Alert, Oriented, Cooperative, No Acute Distress Lungs: Normal Respiratory Effort, Rhonchi (Very mild and lower lungs), Wheezing Cardiovascular: Regular Rate, Regular Rhythm GI/Abdominal Exam: Soft, No Distention Extremities: No Pedal Edema Psy/Mental Status: Alert, Normal Affect Sepsis Event Note - Evaluation Sepsis Screening Result: No Definite Risk - Focused Exam Vital Signs: Vital Signs Temp Pulse Resp BP Pulse Ox Pulse Ox 06/20/19 08:13 83 L 06/20/19 07:52 78 94 L 06/20/19 07:00 36.0 C L 71 121/67 94 L 06/20/19 05:15 93 L 06/20/19 05:05 86 L 06/20/19 05:00 78 L 06/20/19 04:15 91 L 06/20/19 04:00 36.3 C 73 16 108/58 L 94 L 06/19/19 23:00 36.3 C 72 16 95/54 L 94 L Date Exam was Performed: 06/20/19 Time Exam was Performed: 09:51 - Problem List Review Problem List Initiated/Reviewed/Updated: Yes - My Orders Last 24 Hours: My Active Orders 06/20/19 09:50 RT Acapella [RESPCARE] Routine - Plan Plan:: ASSESSMENT AND PLAN - Acute bronchitis-complicated by an acute exacerbation of COPD with acute respiratory failure and hypoxia. On antibiotics with suspicion for bacterial infection with CRP greater than 11. Still requiring supplemental oxygen but slowly getting better. I would anticipate she will be weaned off oxygen by tomorrow. -Empiric antibiotic coverage with levofloxacin -Prednisone 40 mg daily (day 3) -Scheduled and as needed nebulizers -Supplement oxygen as needed, wean as able Tobacco dependence-still smoking prior to admission. -Encourage cessation Fibromyalgia-stable. Maintenance issues - - DVT prophylaxis -mechanical - GI prophylaxis -not indicated - Nutrition -regular diet Disposition -I would anticipate discharge home after the hospital stay Michel Martínez M.D.
[2019-06-21] MEDS: Albuterol/Ipratropium 3.0-0.5 MG/3 ML Neb Soln NEB SCH ×3 (07:07→15:19)
[2019-06-21] MEDS: SYMBICORT INH SCH (07:16)
[2019-06-21] MEDS: INCRUSE ELLIPTA 62.5MCG INHALER (PTOM) INH SCH (07:16)
[2019-06-21] MEDS: guaiFENesin 600 MG Tab.ER PO SCH ×2 (08:18→14:48)
[2019-06-21] MEDS: predniSONE 20 MG Tab PO SCH (08:18)
[2019-06-21] MEDS: Calcium Carbonate/Vitamin D3 1500 MG-400 Units Tab PO SCH (08:18)
[2019-06-21] MEDS ORDERED: Lactobacillus Rhamnosus GG (Probiotic) Cap PO SCH (09:45)
--- NOTE | 2019-06-21 13:55 | PCM.DCSUM1 ---
Discharge Summary - Hospital Course Brief History: Ms. Mcgee is a 64-year-old woman who was admitted through the emergency department with cough and shortness of breath with hypoxia, secondary to COPD exacerbation and underlying bronchitis. - Discharge Data Discharge Date: 06/21/19 Discharge Disposition: Home, Self-Care 01 Condition: Fair - Referral to Home Health Primary Care Physician: Caitie Fletcher MD - Discharge Diagnosis/Problem(s) (1) Bronchitis SNOMED Code(s): 45668114 ICD Code: J40 - BRONCHITIS, NOT SPECIFIED ACUTE OR CHRONIC Status: Acute Current Visit: Yes (2) Fibromyalgia SNOMED Code(s): 864948263 ICD Code: M79.7 - FIBROMYALGIA Status: Acute Current Visit: Yes (3) Acute exacerbation of chronic obstructive pulmonary disease (COPD) SNOMED Code(s): 832335916 ICD Code: J44.1 - CHRONIC OBSTRUCTIVE PULMONARY DISEASE W (ACUTE) EXACERBATION Status: Acute Current Visit: Yes (4) Tobacco abuse SNOMED Code(s): 371601975 ICD Code: Z72.0 - TOBACCO USE Status: Chronic Current Visit: No - Patient Summary/Data Consults: Consultations 06/17/19 21:28 Respiratory Care Assess and Treatment [CONS] Routine Comment: Physician Instructions: Hospital Course: Ms. Mcgee is a 64-year-old female with medical history of centrilobular emphysema, chronic fatigue syndrome, nicotine dependence, fibromyalgia, questionable asthma, migraine syndrome, lower extremity varicose veins came to the ED with a concerns of cough associated with the sputum production with low oxygen saturation. Patient initially went to urgent care at that time patient saturations was around 80. At that complaint patient transferred to ER. Patient denies any chest pain, exertional chest pain, headaches, dizziness, lightheadedness, disturbance in bowel and bladder habits. Patient complaining of intermittent fever associated with cough since last 1 week which is gradually progressing. Patient did not receive flu vaccination this season. Denies any lower extremity swelling, orthopnea, PND and palpitations. Patient smokes half a pack a day wants to quit smoking. Patient is compliant with Symbicort and Incruse. Patient complaining of shortness of breath denies any loss of consciousness. In the ED patient x-ray did not show any concerns of pneumonia, WBCs within normal limit, CRP is elevated and saturations are 91% with 2 L of oxygen. Patient received 1 dose of 125 mg prednisolone IV. Patient is a full code. Other review of systems are not significant. On admission she was given IV fluids for hydration as well as started on antibiotic therapy with levofloxacin. She was given IV steroids the first few days of hospitalization and then transferred to oral prednisone. During her hospital stay she gradually improved and was ambulatory at the time of discharge. She continued to require supplemental oxygen and will be discharged home with supplemental oxygen 2 L/min via nasal cannula. She will be prescribed Wellbutrin for assistance in smoking cessation and I did financial health counselor her concerning the importance of smoking cessation. She will receive another 3 days of antibiotic therapy with levofloxacin and another 3 days of oral prednisone. Activity will be as tolerated and she will resume her usual diet. She will be scheduled for appointment and follow-up in pulmonary rehab. Follow- up appointment with her primary care provider within 1 week. - Patient Instructions Diet: Usual Diet as Tolerated Activity: As Tolerated Other/Special Instructions: Discharge on home oxygen 2 L/min via nasal cannula. Please set up pulmonary rehab. Please schedule follow-up appointment with primary care provider within 1 week. - Discharge Plan *PRESCRIPTION DRUG MONITORING PROGRAM REVIEWED*: Not Applicable *COPY OF PRESCRIPTION DRUG MONITORING REPORT IN PATIENT [place]: Not Applicable Prescriptions/Med Rec: buPROPion [Wellbutrin SR] 100 mg PO BID #60 tab.sr Lactobacillus Rhamnosus GG [Culturelle] 1 cap PO BID #60 cap levoFLOXacin [Levaquin] 500 mg PO BEDTIME #3 tablet predniSONE 40 mg PO WITHBREAKFAST #6 tablet Home Medications: Home Meds Albuterol [Ventolin 2 MG/5 ML] 3 ml INH Q3H PRN 06/17/19 [History] Albuterol [Ventolin HFA] 1 - 2 puff INH ASDIRECTED 06/17/19 [History] Calcium Carbonate/Vitamin D3 [Calcium 600-Vit D3 2,500 Sftgl] 2.5 tab PO DAILY 06/17/19 [History] Budesonide/Formoterol Fumarate [Symbicort 160-4.5 Mcg Inhaler] 2 puff INH BID [History] Non-Formulary Medication [NF Drug] 1 puff INH DAILY 06/18/19 [History] Lactobacillus Rhamnosus GG [Culturelle] 1 cap PO BID #60 cap 06/21/19 [Rx] buPROPion [Wellbutrin SR] 100 mg PO BID #60 tab.sr 06/21/19 [Rx] levoFLOXacin [Levaquin] 500 mg PO BEDTIME #3 tablet 06/21/19 [Rx] predniSONE 40 mg PO WITHBREAKFAST #6 tablet 06/21/19 [Rx] Oxygen Therapy Mode: Nasal Cannula Oxygen Flow Rate (L/min): 2 Maintain SpO2% greater than: 88 Patient Handouts: Chronic Obstructive Pulmonary Disease Exacerbation, Easy-to- Read Referrals: Caitie Fletcher MD [Primary Care Provider] - - Discharge Summary/Plan Comment DC Time >30 min.: No - Patient Data Vitals - Most Recent: Last Vital Signs Temp 96.3 F L 06/21/19 10:49 Pulse 92 06/21/19 11:01 Resp 16 06/21/19 10:49 BP 113/65 06/21/19 10:49 Pulse Ox 94 L 06/21/19 10:49 Weight - Most Recent: 102 lb 15.999 oz I&O - Last 24 hours: Intake & Output 06/20/19 06/21/19 06/21/19 22:59 06:59 14:59 Intake Total 1400 300 Balance 1400 300 Med Orders - Current: Current Medications Acetaminophen (Tylenol) 650 mg PO Q4H PRN PRN Reason: Pain (Mild 1-3)/fever Albuterol (Proventil Neb Soln) 2.5 mg NEB Q4H PRN PRN Reason: shortness of breath/wheezing Last Admin: 06/20/19 01:09 Dose: 2.5 mg Albuterol/Ipratropium (Duoneb 3.0-0.5 Mg/3 Ml) 3 ml NEB QIDRT [facility] Last Admin: 06/21/19 10:59 Dose: 3 ml Benzonatate (Tessalon Perles) 100 mg PO TID PRN PRN Reason: Cough Calcium Carbonate (Caltrate 600+D 1500 Mg-400 Units) 2 tab PO DAILY [facility] Last Admin: 06/21/19 08:18 Dose: 2 tab Guaifenesin (Mucinex) 600 mg PO TID [facility] Last Admin: 06/21/19 08:18 Dose: 600 mg Lactobacillus Rhamnosus (Culturelle) 1 cap PO BID [facility] Last Admin: 06/21/19 10:11 Dose: 1 cap Levofloxacin 250 mg/ (Levofloxacin 500 mg) 750 mg PO BEDTIME [facility] Last Admin: 06/20/19 21:21 Dose: 750 mg Lorazepam (Ativan) 0.5 mg PO Q4H PRN PRN Reason: restless legs/sleep Last Admin: 06/20/19 22:11 Dose: 0.5 mg Ondansetron HCl (Zofran Odt) 4 mg PO Q6H PRN PRN Reason: Nausea able to take PO Symbicort 160mcg/4. (5mcg Inhaler (Ptom)) 0 each INH BIDRT [facility] Last Admin: 06/21/19 07:16 Dose: 2 each Incruse Ellipta 62. (5mcg Inhaler (Ptom)) 0 each INH DAILYRT [facility] Last Admin: 06/21/19 07:16 Dose: 1 each Prednisone (Prednisone) 40 mg PO WITHBREAKFAST [facility] Last Admin: 06/21/19 08:18 Dose: 40 mg Senna/Docusate Sodium (Senna Plus) 1 tab PO BID PRN PRN Reason: Constipation Discontinued Medications Albuterol/Ipratropium (Duoneb 3.0-0.5 Mg/3 Ml) 3 ml NEB ONETIME ONE Stop: 06/17/19 20:17 Last Admin: 06/17/19 20:26 Dose: 3 ml Albuterol/Ipratropium (Duoneb 3.0-0.5 Mg/3 Ml) 3 ml NEB Q4H [facility] Last Admin: 06/18/19 06:11 Dose: 3 ml Albuterol/Ipratropium (Duoneb 3.0-0.5 Mg/3 Ml) 3 ml NEB Q4H [facility] Diphenhydramine HCl (Benadryl) 25 mg PO ONETIME ONE Stop: 06/17/19 23:44 Last Admin: 06/18/19 00:09 Dose: 25 mg Heparin Sodium (Porcine) (Heparin Sodium) 5,000 units SUBCUT Q8H [facility] Last Admin: 06/18/19 06:13 Dose: 5,000 units Levofloxacin/Dextrose 750 mg/ (Premix) 150 mls @ 100 mls/hr IV Q24H [facility] Last Admin: 06/17/19 22:42 Dose: 100 mls/hr Levofloxacin/Dextrose 250 mg/ (Premix) 50 mls @ 50 mls/hr IV Q24H [facility] Methylprednisolone Sodium Succinate (Solu-Medrol) 125 mg IVPUSH ONETIME ONE Stop: 06/17/19 20:18 Last Admin: 06/17/19 20:26 Dose: 125 mg Prednisone (Prednisone) 20 mg PO ONETIME ONE Stop: 06/19/19 15:01 Last Admin: 06/19/19 15:03 Dose: 20 mg - Exam General: Reports: Alert, Oriented, Cooperative, Mild Distress Lungs: Reports: Decreased Breath Sounds, Wheezing. Denies: Rales, Rhonchi, Rub Cardiovascular: Reports: Regular Rate, Regular Rhythm, No Murmurs GI/Abdominal Exam: Soft, Non-Tender, No Organomegaly, No Distention Extremities: Non-Tender, No Pedal Edema
== END 2019-06-21 16:50 | disposition home or self-care (01) | DRG 189 ==
LOC: JP.ED 18:47 → JP.ICU 21:28 → JP.MS 06-18 15:39
PROVIDERS: ADMIT Family Medicine; ATTEND Internal Medicine
DX: J96.01 Acute respiratory failure with hypoxia (principal); J20.9 Acute bronchitis, unspecified; J43.2 Centrilobular emphysema; F17.210 Nicotine dependence, cigarettes, uncomplicated; M79.7 Fibromyalgia; G43.909 Migraine, unspecified, not intractable, without status migrainosus; R53.82 Chronic fatigue, unspecified; Z71.6 Tobacco abuse counseling; Z79.52 Long term (current) use of systemic steroids; Z90.49 Acquired absence of other specified parts of digestive tract; Z79.899 Other long term (current) drug therapy
CPT/HCPCS: 36415; 80048; 80053; 85025; 86140; 87804; 87804-59; 94640; 94667; 94668; 94762; 96374; 99285-25; A9270-GY; J1644; J1956; J2930; J7620-GY

== ENCOUNTER 2021-06-03 18:53 | Inpatient (IN) | payer MEDICARE, MEDICAID ==
[2021-06-03] MEDS ORDERED: Albuterol 8 GM Inhaler INH PRN (20:26)
[2021-06-03] MEDS ORDERED: Albuterol/Ipratropium 3.0-0.5 MG/3 ML Neb Soln NEB PRN (20:26)
[2021-06-03] MEDS ORDERED: Melatonin 3 MG Tab PO PRN (20:26)
[2021-06-03] MEDS ORDERED: Sodium Chloride 0.9% 1,000 ML IV SCH (20:26)
[2021-06-03] MEDS ORDERED: Albuterol 0.083% 2.5 MG/3 ML Neb Soln NEB PRN (20:26)
[2021-06-03] MEDS ORDERED: Codeine/guaiFENesin 10-100 MG/5 ML Syrup 5 ML Cup PO PRN (20:26)
[2021-06-03] MEDS ORDERED: oxyCODONE 5 MG Tab PO PRN (20:26)
[2021-06-03] MEDS ORDERED: Acetaminophen 325 MG Tab PO PRN (20:26)
[2021-06-03] MEDS ORDERED: diphenhydrAMINE 25 MG Cap PO PRN (20:26)
[2021-06-03] MEDS ORDERED: Ondansetron 4 MG Tab.DIS PO PRN (20:26)
[2021-06-03] MEDS ORDERED: LORazepam 2 MG/ML SDV IV PRN (20:26)
[2021-06-03] MEDS ORDERED: Morphine 2 MG/ML SYRINGE IVPUSH PRN (20:26)
[2021-06-03] MEDS: methylPREDNISolone Sodium Succinate 40 MG/1 ML SDV IV SCH (21:21)
[2021-06-03] MEDS: guaiFENesin 100 MG/5 ML Soln 10 ML UD Cup PO SCH ×2 (21:21→23:55)
[2021-06-03] MEDS: Formoterol/Mometasone 200-5 MCG 8.8 GM Inhaler IH SCH ×2 (21:22→23:51)
[2021-06-03] MEDS: cefTRIAXone 1 GM in Sodium Chloride 0.9% 50 ML IV SCH (21:22)
[2021-06-03] MEDS: TIOTROPIUM INH SCH (22:05)
[2021-06-03] MEDS: FORMOTEROL INH SCH (22:05)
[2021-06-03] MEDS: BUDESONIDE INH SCH (22:05)
[2021-06-03] MEDS: Azithromycin 500 MG in Sodium Chloride 0.9% 250 ML IV SCH (22:08)
[2021-06-03] MEDS ORDERED: Calcium Carbonate 500 MG Tab.Chew PO PRN (23:53)
[2021-06-04] MEDS: guaiFENesin 100 MG/5 ML Soln 10 ML UD Cup PO SCH ×6 (04:27→23:52)
[2021-06-04] MEDS: methylPREDNISolone Sodium Succinate 40 MG/1 ML SDV IV SCH ×3 (04:27→21:21)
[2021-06-04] MEDS ORDERED: Albuterol 8 GM Inhaler INH PRN (07:00)
[2021-06-04] MEDS: FORMOTEROL INH SCH ×2 (08:20→20:40)
[2021-06-04] MEDS: BUDESONIDE INH SCH ×2 (08:20→20:40)
[2021-06-04] MEDS: cefTRIAXone 1 GM in Sodium Chloride 0.9% 50 ML IV SCH (20:39)
[2021-06-04] MEDS: Azithromycin 500 MG in Sodium Chloride 0.9% 250 ML IV SCH (21:19)
[2021-06-04] MEDS: TIOTROPIUM INH SCH (22:22)
[2021-06-05] MEDS ORDERED: guaiFENesin 100 MG/5 ML Soln 10 ML UD Cup PO PRN (03:20)
[2021-06-05] MEDS: methylPREDNISolone Sodium Succinate 40 MG/1 ML SDV IV SCH (05:48)
[2021-06-05] MEDS: FORMOTEROL INH SCH (07:34)
[2021-06-05] MEDS: BUDESONIDE INH SCH (07:34)
== END 2021-06-05 12:50 | disposition home or self-care (01) | DRG 190 ==
LOC: JP.MS 18:53
PROVIDERS: ADMIT Hospitalist; ATTEND Hospitalist
DX: J44.0 Chronic obstructive pulmonary disease with (acute) lower respiratory infection (principal); J18.9 Pneumonia, unspecified organism; J44.1 Chronic obstructive pulmonary disease with (acute) exacerbation; J01.90 Acute sinusitis, unspecified; H54.7 Unspecified visual loss; Z20.822 Contact with and (suspected) exposure to COVID-19; M79.7 Fibromyalgia; Z79.52 Long term (current) use of systemic steroids; Z79.51 Long term (current) use of inhaled steroids; Z79.899 Other long term (current) drug therapy; Z90.49 Acquired absence of other specified parts of digestive tract; Z87.891 Personal history of nicotine dependence
CPT/HCPCS: 36415; 71046; 71046-26; 80053; 81001; 84145; 85025; 87040; 94640; A9270-GY; J0456; J0696; J2920; J7030; J7050

== ENCOUNTER 2024-10-19 17:52 | Emergency (ER) | payer MEDICARE, BC ==
[2024-10-19 18:56] LABS: BASOPHILS ABSOLUTE AUTO 0.02 K/uL (0.00-0.10); BASOPHILS PERCENT AUTO 0.2 % (0.1-1.3); HEMATOCRIT 40.8 % (34.3-46.0); HEMOGLOBIN 13.1 g/dL (11.2-15.5); IMMATURE GRAN ABSOLUTE AUTO 0.05 K/uL (0.00-0.23); IMMATURE GRAN PERCENT AUTO 0.6 % (0.0-0.7); LYMPHOCYTES ABSOLUTE AUTO 0.49 K/uL (0.8-3.3); LYMPHOCYTES PERCENT AUTO 5.6 % (11.4-47.7); MEAN CORPUSCULAR HEMOGLOBIN 31.7 pg (31.6-35.5); MEAN CORPUSCULAR HGB CONC 32.1 g/dL (31.6-35.5); MEAN CORPUSCULAR VOLUME 98.8 fL (81.4-99.0); MONOCYTES ABSOLUTE AUTO 0.21 K/uL (0.20-0.90); MONOCYTES PERCENT AUTO 2.4 % (3.3-12.6); NEUTROPHILS ABSOLUTE AUTO 7.96 K/uL (1.0-7.6); NEUTROPHILS PERCENT AUTO 91.2 % (40.0-78.1); PLATELET COUNT,PLT 286 K/uL (130-375); RED BLOOD CELL COUNT 4.13 M/uL (3.77-5.24); WHITE BLOOD CELL COUNT,WBC 8.7 K/uL (3.2-11.0)
[2024-10-19 19:13] LABS: ANION GAP 7.4 mmol/L (5.0-14.0); BLOOD UREA NITROGEN,BUN 15 mg/dL (7-18); CALCIUM 8.7 mg/dL (8.5-10.1); CARBON DIOXIDE,CO2 30 mmol/L (21-32); CHLORIDE,CL 105 mmol/L (100-108); CREATININE 0.6 mg/dL (0.6-1.0); EST CRCL DRUG DOSING (CG) 76.42 mL/min; ESTIMATED GFR 97 mL/min (>60); GLUCOSE RANDOM 130 mg/dL (74-106); POTASSIUM,K 4.3 mmol/L (3.6-5.2); SODIUM,NA 142 mmol/L (140-148)
[2024-10-19 19:14] LABS: C-REACTIVE PROTEIN < 0.50 mg/dL (<0.50)
== END 2024-10-19 19:52 | disposition home or self-care (01) ==
LOC: JP.ED 17:52
DX: L03.115 Cellulitis of right lower limb (principal); J44.9 Chronic obstructive pulmonary disease, unspecified; Z86.16 Personal history of COVID-19; Z90.49 Acquired absence of other specified parts of digestive tract; Z87.891 Personal history of nicotine dependence; Z79.899 Other long term (current) drug therapy
CPT/HCPCS: 36415; 80048; 85025; 86140; 99283; 99284

== ENCOUNTER 2024-11-09 20:44 | Emergency (ER) | payer MEDICARE, BC ==
[2024-11-09] MEDS: Potassium Chloride 20 MEQ Tab.ER PO ONE (21:25)
== END 2024-11-10 00:52 | disposition home or self-care (01) ==
LOC: JP.ED 20:44
DX: E87.6 Hypokalemia (principal); J44.9 Chronic obstructive pulmonary disease, unspecified; Z79.51 Long term (current) use of inhaled steroids; Z79.899 Other long term (current) drug therapy; Z86.16 Personal history of COVID-19; L03.116 Cellulitis of left lower limb
CPT/HCPCS: 36415; 80048; 84132; 87070; 87075; 87205; 93005; 93010; 96365; 96366; 99284; 99285; A9270; J3370; J3480; J7030; J7050